=== PATIENT | female | born 1995 | race Caucasian/White ===

== ENCOUNTER 2018-04-01 22:43 | Emergency (ER) | payer MEDICAID, SELFPAY ==
[2018-04-01 22:44] VITALS: BP 104/69; PULSE 89; RESP 16; TEMP 36.6; O2SAT 98; BMI 26.9
--- NOTE | 2018-04-01 23:04 | US_ITS ---
STUDY: ULTRASOUND TRANSVAGINAL CLINICAL: Female, 22 years old. Left-sided pelvic pain. TECHNIQUE: Transvaginal COMPARISON: None. FINDINGS: Normal uterine size measuring 10.7 x 5.3 x 3.7 cm in maximal craniocaudal dimension. There are no myometrial masses. Normal endometrial thickness measuring 4 mm. There are no endometrial masses, and there is no fluid in the endometrial cavity. Normal uterine cervix. Normal right ovary, measuring 3.2 x 2.7 x 2 cm. There are multiple follicles without a dominant cyst. Normal left ovary, measuring 1.3 x 1.3 x 1.1 cm. There are multiple follicles without a dominant cyst. There is small amount of free fluid in the pelvis. US/Transvaginal Non- IMPRESSION: There is small amount of free fluid in the pelvis. Electronically Signed: Harinder Boyle MD at 3:15 EDT Tel , Service support ,
[2018-04-01] MEDS: Ketorolac 30 MG/ML Syringe IV (23:22)
--- NOTE | 2018-04-01 23:22 | NURSING ---
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
[2018-04-01 23:24] LABS: Bacteria 0 SEEN /hpf (None Seen); Mucous, Urine 0 SEEN /hpf (<or=2+); Red Blood Cells-Urine 0 SEEN /hpf (0-5)
[2018-04-01 23:44] LABS: Absolute Lymphocyte Count 4.65 X10^3/ul (0.83-4.51); Absolute Neutrophil Count 7.3 X10^3/uL (2.0-7.7); Basophil# 0.05 X10^3/uL; Basophil% 0.4 % (0-1); Eosinophil# 0.56 X10^3/uL; Eosinophils% 4.1 % (0-5); Hematocrit 41.9 % (37-47); Hemoglobin 13.7 g/dl (12.0-15.0); Lymphocyte # 4.65 X10^3/ul (4.0); Lymphocyte % 34.1 % (19-41); Mean Corp Hgb Conc 32.7 g/gl (32-36); Mean Corpuscular Hgb 30.2 pg (27.0-32.0); Mean Corpuscular Volume 92.3 fL (81-99); Mean Platelet Vol. 10.7 fl (6.2-12.0); Monocyte# 1.01 X10^3/uL; Monocyte% 7.4 % (0-10); Neutrophil # 7.33 X10^3/uL (2.7-7.7); Neutrophil % 53.8 % (47-70); POSITIVE COUNT NO; POSITIVE DIFFERENTIAL NO; POSITIVE MORPHOLOGY NO; Platelet Count 295 K/mm3 (150-450); RBC Distribution Width CV 13.5 % (11.6-14.6); RBC Distribution Width SD 45.2 fl (35.1-43.9); Red Blood Count 4.54 M/mm3 (4.2-5.4); White Blood Count 13.6 K/mm3 (4.4-11.0)
[2018-04-01 23:47] LABS: Color, Urine Yellow (Yellow); Glucose, Dipstick Normal (Normal); Ketone-Dipstick Negative (Negative); Leukocyte Esterase-Dipstick 25 /ul (Negative); Nitrite-Dipstick Negative (Negative); Occult Blood-Urine 50 /ul (Negative); Protein-Dipstick Negative (Negative); Urine Bilirubin Dipstick Negative (Negative); Urine Clarity Clear (Clear); Urine Urobilinogen Normal (Normal)
[2018-04-01 23:56] LABS: Squamous Epithelial Cells - UA 5-10 SEEN /hpf (5-10); White Blood Cells 0-5 SEEN /hpf (0-5)
[2018-04-01 23:57] LABS: Anion Gap 6 (5-15); BUN 10 mg/dL (7-18); BUN/Creat Ratio 12.8 RATIO (10-20); Calcium,Total 8.6 mg/dL (8.5-10.1); Chloride 107 mmol/L (98-107); Creatinine, Serum 0.78 mg/dL (0.55-1.02); EST Glomerular Filtration Rate 96 mL/min (>60); Est Glom Filt Rate - Afr Amer 116 mL/min (>60); Estimated Creatinine Clearance 96.04 ml/min; Glucose 85 mg/dL (74-106); Potassium 3.7 mmol/L (3.5-5.1); Sodium Level 140 mmol/L (136-145)
[2018-04-02 00:06] LABS: Pregnancy, Serum, hCG Quali. NEGATIVE Negative (0-9 Nonpreg)
--- NOTE | 2018-04-02 00:07 | ED.VISSUMM ---
- ER Visit Summary Date of Service: 04/02/18 Chief Complaint: Abdominal pain History of Present Illness: The patient is a 22 F who presents with abdominal pain and a ruptured ovarian cyst. She began have abdominal pain about 5 days ago. She was seen at an outside hospital at that time. She had a CT of the abdomen was diagnosed with an ovarian cyst. She did follow-up with her DAILY RELEASE AND DUPE PRINTER and had a repeat ultrasound which showed free fluid in the pelvis and she was told that her cyst had ruptured. She can planes of ongoing worsening pain which was more severe today despite ibuprofen. She does note some light vaginal bleeding which is less than menstrual period. No discharge. She denies fevers nausea vomiting. Review of systems otherwise negative. Physical Examination: Afebrile vitals are normal Moist mucous membranes Heart regular rate and rhythm Lungs are clear Abdomen soft Patient does have some moderate left lower abdominal tenderness Test Results: CBC BMP urinalysis notable for white blood cell count 13.6. Hemoglobin is normal. Pelvic ultrasound is pending at the time of this dictation. Emergency Department Course and Treatment: Given patient's report of a ruptured ovarian cyst and a worsening pain we did pursue workup including evaluation for hemorrhage. Hemoglobin is stable. She is not tachycardic. She is resting comfortably. At the time of the dictation a pelvic ultrasound is pending to reevaluate. Patient will be signed out to the oncoming physician but I do believe ultimately she will be able to be discharged home to follow-up with her DAILY RE[employer] AND DUPE PRINTER unless that shows significant abnormality. Treatment Plan: [] Disposition: Pending ultrasound Impression: Ruptured ovarian cyst Pelvic pain This note was generated with [employer] dictation software. It may contain incorrect words, spelling, and punctuation that were not noted in review of the chart prior to signing ED Disposition - Plan for ED Patient: Chief Complaint: Abd Pain Referrals: Magda Ruiz MD [Primary Care Provider] -
--- NOTE | 2018-04-02 00:10 | ED.DCSUM_ITS ---
- ER Visit Summary Date of Service: 04/02/18 Chief Complaint: Abdominal pain History of Present Illness: The patient is a 22 F who presents with abdominal pain and a ruptured ovarian cyst. She began have abdominal pain about 5 days ago. She was seen at an outside hospital at that time. She had a CT of the abdomen was diagnosed with an ovarian cyst. She did follow-up with her RAILROAD OPERATING ENGINEER and had a repeat ultrasound which showed free fluid in the pelvis and she was told that her cyst had ruptured. She can planes of ongoing worsening pain which was more severe today despite ibuprofen. She does note some light vaginal bleeding which is less than menstrual period. No discharge. She denies fevers nausea vomiting. Review of systems otherwise negative. Physical Examination: Afebrile vitals are normal Moist mucous membranes Heart regular rate and rhythm Lungs are clear Abdomen soft Patient does have some moderate left lower abdominal tenderness Test Results: CBC BMP urinalysis notable for white blood cell count 13.6. Hemoglobin is normal. Pelvic ultrasound is pending at the time of this dictation. Emergency Department Course and Treatment: Given patient's report of a ruptured ovarian cyst and a worsening pain we did pursue workup including evaluation for hemorrhage. Hemoglobin is stable. She is not tachycardic. She is resting comfortably. At the time of the dictation a pelvic ultrasound is pending to reevaluate. Patient will be signed out to the oncoming physician but I do believe ultimately she will be able to be discharged home to follow-up with her RAILROAD OPERATING ENGINEER unless that shows significant abnormality. Treatment Plan: [] Disposition: Pending ultrasound Impression: Ruptured ovarian cyst Pelvic pain This note was generated with [employer] dictation software. It may contain incorrect words, spelling, and punctuation that were not noted in review of the chart prior to signing ED Disposition - Plan for ED Patient: Chief Complaint: Abd Pain Referrals: Magda Ruiz MD [Primary Care Provider] -
--- NOTE | 2018-04-02 00:12 | DCINST.ED_ITS ---
ED Disposition - Plan for ED Patient: Chief Complaint: Abd Pain Instructions: ED Cyst Ovarian Prescriptions: Naproxen [Naprosyn] 500 mg PO BID #20 tab Referrals: Magda Ruiz MD [Primary Care Provider] - Additional Instructions: Follow up with your VBA DEVELOPER
[2018-04-02] MEDS: Ondansetron 4 MG/2 ML Vial IV (00:58)
[2018-04-02] MEDS: Morphine 4 MG/ML Syringe 6 MG IV (00:58)
[2018-04-02 03:39] VITALS: BP 106/59; PULSE 62; RESP 16; O2SAT 96
== END 2018-04-02 03:42 | disposition home or self-care (01) ==
PROVIDERS: Emergency Provider Emergency Medicine; Family Provider Internal Medicine; PCP Internal Medicine
DX: N83.209 Unspecified ovarian cyst, unspecified side (principal); R10.2 Pelvic and perineal pain; Z72.0 Tobacco use
CPT/HCPCS: 76830; 80048; 81001; 84703; 85025; 93976; 96374; 96375; 99283; A4216; J2405

== ENCOUNTER 2021-03-11 21:15 | Outpatient (CLI) | payer MEDICAID, SELFPAY ==
[2021-03-11 21:35] VITALS: BP 113/70; PULSE 104; TEMP 36.9; O2SAT 98
[2021-03-11 21:58] VITALS: BMI 34.8
[2021-03-11] MEDS: Mag Hydrox/Al Hydrox/Simeth 30 ML UDC PO (23:11)
--- NOTE | 2021-03-15 08:23 | OB.TRI.NOTE ---
History of Present Illness Date of Service: 03/11/21 Was patient seen by the physician?: No Reason For Visit: RULE OUT LABOR Date of Service: 03/11/21 Allergies No Known Allergies Allergy (Verified 03/11/21 22:01) Physical Exam Vitals: Vital Signs Temp Pulse BP Pulse Ox 98.4 F 104 H 113/70 98 03/11/21 21:35 03/11/21 21:35 03/11/21 21:35 03/11/21 21:35 NST - FHR Rate Baby A Baseline: 135 Variability:: Moderate Accelerations:: 15 x 15 Decelerations:: None NST Reactive:: Yes FHR Category:: Category I Uterine Activity:: irritability Impression/Plan 25 YOF @ 35+ weeks, false labor, high risk multigravida d/c home routine instructions, f/u w/ her physician prn or return if needed
== END 2021-03-11 23:10 | disposition home or self-care (01) ==
LOC: WPOUT 21:31 → OBT 21:31
PROVIDERS: PCP Internal Medicine; Visit Provider Obstetrics & Gynecology
DX: O47.03 False labor before 37 completed weeks of gestation, third trimester (principal); Z3A.35 35 weeks gestation of pregnancy
CPT/HCPCS: 59025; 59050; 99218; G0378